=== PATIENT | female | born 1990 ===

== ENCOUNTER 2017-01-05 20:08 | Emergency (ER) | payer OTHER ==
[~2017-01-05] VITALS: Ht 149.9 cm; Wt 60.3 kg
[2017-01-05 20:29] VITALS: BP 100/62
--- NOTE | 2017-01-05 21:51 | ED CARDIAC/CP/PALPITATIONS ---
History of Present Illness General Chief Complaint: Chest Pain Stated Complaint: CHEST PAIN X 1MTH Source: patient Exam Limitations: no limitations Vital Signs & Intake/Output Vital Signs & Intake/Output Vital Signs Date Time Temp Pulse Resp B/P Pulse O2 O2 Flow FiO2 Ox Delivery Rate 01/05 2150 Room Air 01/05 2029 98.4 89 18 100/62 100 Room Air Allergies Coded Allergies: No Known Allergies (01/05/17) Reconcile Medications Naproxen 500 MG TABLET 1 TAB PO BID PRN PAIN TAKE WITH FOOD Triage Note: PT TO ED FOR CP X1 MONTH, REPRODUCIBLE, TENDER ON PALPATION. DENIES PALPITATIONS, SOB, ALMAZAN. Triage Nurses Notes Reviewed? yes Onset: Abrupt Duration: 1 MONTH Timing: recent history Location: central Activities at Onset: none : No Patient currently breastfeeds: No HPI: 26 year old female presents to the ER for chief complaint of chest pain x 1 month. Worse with palpation. No cough, shortness of breath, palpitations. No fever or chills. Today she decided to come to the ER for evaluation. Past History Travel History Traveled to [place] past 21 day No Medical History Any Pertinent Medical History? 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 No Review of Systems Review of Systems Constitutional: Denies: chills, fever. EENTM: Reports: no symptoms. Respiratory: Reports: short of breath (WITH EXERTION). Denies: cough. Cardiovascular: Reports: chest pain. Denies: palpitations. GI: Denies: abdominal pain. Genitourinary: Reports: no symptoms. Musculoskeletal: Reports: no symptoms. Skin: Reports: no symptoms. Neurological/Psychological: Reports: no symptoms. Hematologic/Endocrine: Denies: bruising, bleeding, polyuria, polydipsia. Immunologic/Allergic: Denies: splenectomy. All Other Systems: Reviewed and Negative Physical Exam Physical Exam General Appearance: well developed/nourished, alert, awake Head: atraumatic, normal appearance Eyes: Bilateral: normal appearance, PERRL, EOMI. Ears, Nose, Throat: normal pharynx, normal ENT inspection, hearing grossly normal Neck: normal inspection, supple, full range of motion Respiratory: normal breath sounds, no respiratory distress, chest tender to palpation Cardiovascular: regular rate/rhythm Peripheral Pulses: 2+ radial (R), 2+ radial (L) Gastrointestinal: normal bowel sounds, soft, non-tender Neurologic/Psych: awake, alert, oriented x 3 Skin: intact, normal color, warm/dry Core Measures ACS in differential dx? No Severe Sepsis Present: No Septic Shock Present: No Progress Differential Diagnosis: AMI, costochondritis, musculoskeletal pain, myocarditis, pericarditis, pneumonia, pneumothorax, unstable angina Plan of Care: Orders Procedure Date/time Status URINE 01/05 2158 Complete TROPONIN LEVEL 01/05 2158 Complete D-DIMER 01/05 2158 Complete COMPREHENSIVE METABOLIC PANEL 01/05 2158 Complete CBC WITHOUT DIFFERENTIAL 01/05 2158 Complete EKG 01/05 2009 Active Laboratory Tests 01/05/17 2226: Urine Test NEGATIVE 01/05/17 2212: Anion Gap 10, Estimated GFR > 60, BUN/Creatinine Ratio 20.0, Glucose 75, Calcium 9.3, Total Bilirubin 0.4, AST 15, ALT 28, Alkaline Phosphatase 70, Troponin I < 0.01, Total Protein 6.7, Albumin 3.8, Globulin 2.9, Albumin/Globulin Ratio 1.3, D-Dimer < 200, CBC w Diff NO MAN DIFF REQ, RBC 3.91 L, MCV 89.2, MCH 28.8, RDW 14.4, MPV 8.3, Gran % 51.7, Lymphocytes % 36.1, Monocytes % 9.3, Eosinophils % 2.3, Basophils % 0.6, Absolute Granulocytes 5.0, Absolute Lymphocytes 3.5 H, Absolute Monocytes 0.9 H, Absolute Eosinophils 0.2, Absolute Basophils 0.1, PUBS MCHC 32.4 L EKG, LABS, DIMER, CXR ORDERED. PATIENT REFUSED TORADOL. PATIENT ELOPED OUT OF THE ER PRIOR TO OBTAINING RESULTS OF CXR. (AVIVA DOWNS,JENIFFER) Diagnostic Imaging: Viewed by Me: Radiology Read. Discussed w/RAD: Radiology Read. CXR Impression: PATIENT: HOLA WATKINS PRESENT AGE: 26 PATIENT ACCOUNT NO: [id number] : 88 LOCATION: [facility] ORDERING PHYSICIAN: JENIFFER CHICAS MD SERVICE DATE: 01/05/17 EXAM TYPE: RAD - XRY-CHEST XRAY , PA AND LATERAL EXAMINATION: XR CHEST CLINICAL INFORMATION: Left-sided chest pain. Shortness of breath with exertion COMPARISON: None TECHNIQUE: 2 views of the chest were obtained. FINDINGS: No significant abnormality is noted involving the heart, lungs, mediastinum, bony thorax or soft tissues. IMPRESSION: Unremarkable examination. DICTATED BY: DOMINIC HOWELL MD DATE/TIME DICTATED:2310 DECORATING INSTRUCTOR:NANETTE DATE/TIME TRANSCRIBED:01/05/172310 CONFIDENTIAL, DO NOT COPY WITHOUT APPROPRIATE AUTHORIZATION. <Electronically signed in Other Vendor System> SIGNED BY: DOMINIC HOWELL MD 01/05/172315 Initial ED EKG: NSR Departure Departure Time of Disposition: 2343 Disposition: HOME OR SELF CARE Condition: Stable Clinical Impression Primary Impression: Costochondral chest pain Referrals: KIARA MCCURDY MD (PCP/Family) Additional Instructions: Take naproxen as directed for pain. Your prescription is at your pharmacy. Please follow up with her primary care doctor in the office. Return to the ER for any changing or worsening symptoms. Departure Forms: Customer Survey General Discharge Information Prescriptions: Current Visit Scripts Naproxen 1 TAB PO BID PRN PAIN #30 TAB TAKE WITH FOOD Critical Care Note Critical Care Note Critical Care Time: non-applicable
[2017-01-05 22:30] LABS: ABSOLUTE BASOPHIL COUNT 0.1 /CUMM (0.0-0.2); ABSOLUTE EOSINOPHIL COUNT 0.2 /CUMM (0.0-0.7); ABSOLUTE LYMPH COUNT 3.5 /CUMM (1.2-3.4); ABSOLUTE MONOCYTE COUNT 0.9 /CUMM (0.10-0.60); BASOPHIL % 0.6 % (0.0-2.0); EOSINOPHIL % 2.3 % (0-5); HEMATOCRIT 34.9 % (37-47); MEAN CORPUSCULAR HGB 28.8 PG (27.0-31.0); MEAN CORPUSCULAR HGB CONC 32.4 G/DL (33.0-37.0); MEAN CORPUSCULAR VOLUME 89.2 FL (81.0-99.0); MEAN PLATELET VOLUME 8.3 FL (7.4-10.4); PLATELET COUNT 229 /CUMM (130-400); RBC DISTRIBUTION WIDTH 14.4 % (11.5-14.5); RED BLOOD CELL CT 3.91 /CUMM (4.20-5.40); WHITE BLOOD CELL COUNT 9.7 /CUMM (4.8-10.8)
[2017-01-05 22:40] LABS: GRANULOCYTE % 51.7 % (42.2-75.2)
--- NOTE | 2017-01-05 23:16 | RADIOLOGY REPORT ---
EXAMINATION: XR CHEST CLINICAL INFORMATION: Left-sided chest pain. Shortness of breath with exertion COMPARISON: None TECHNIQUE: 2 views of the chest were obtained. FINDINGS: No significant abnormality is noted involving the heart, lungs, mediastinum, bony thorax or soft tissues. IMPRESSION: Unremarkable examination.
[2017-01-05] MEDS ORDERED: NAPROXEN500 M2 PO (23:45)
== END 2017-01-06 00:15 ==
LOC: ERH 20:08
PROVIDERS: Emergency Medicine
DX: M94.0 Chondrocostal junction syndrome [Tietze] (principal)
CPT/HCPCS: 81025; 93005; 93010; J1885